=== PATIENT | female | born 1975 | race Caucasian/White ===

== ENCOUNTER → 2016-04-13 | Outpatient (CLI) | payer OTHER ==
[~2016-04-13] MED LIST: OXYC7.5T65 PO
--- NOTE | 2016-04-13 17:50 | DIAGNOSTIC IMAGING REPORT ---
CHEST 2 VIEWS ROUTINE HISTORY: Pre-op. PT TO LAB FIRST, SEND TO [facility] AFTER, NEPHROLITHIASIS COMPARISON: None. FINDINGS: The lungs are clear. Cardiac silhouette is normal in size. No pleural effusions. No pneumothorax. Mild S-shaped scoliosis of the spine. IMPRESSION: No acute process. Electronically signed by: Royal Zazueta M.D. 04/13/2016 5:47 PM
[2016-04-13 17:59] LABS: BASO % 0.5 %; BASO ABS # 0.03 K/uL (0-0.2); COMPLETE YES; EOS % 1.3 %; HEMATOCRIT 37.7 % (37-47); LYMPH % 38.1 %; LYMPH ABS # 2.28 K/uL (1.2-3.4); MEAN CELL VOLUME 86.1 fL (80-100); MEAN CORPUSCULAR HEMOGLOBIN 30.8 pg (25-34); MEAN CORPUSCULAR HGB CONC 35.8 g/dl (32-36); MEAN PLATELET VOLUME 9.8 fL (7.4-10.4); MONO % 8.7 %; NEUT % 51.4 %; PLATELET COUNT 217 K/uL (130-400); RED BLOOD COUNT 4.38 M/uL (4.2-5.4); WHITE BLOOD COUNT 5.98 K/uL (4.8-10.8)
[2016-04-13 18:34] LABS: BLOOD UREA NITROGEN 11 mg/dl (7-18); BUN/CREATININE RATIO 15.2 (10-20); CARBON DIOXIDE 25 mmol/L (21-32); CHLORIDE 105 mmol/L (98-107); CREATININE 0.74 mg/dl (0.60-1.20); POTASSIUM 3.7 mmol/L (3.5-5.1); SODIUM 140 mmol/L (136-145)
== END | disposition home or self-care (01) ==
LOC: C.RAD 16:09
PROVIDERS: ATTEND Urology
DX: N20.0 Calculus of kidney (principal)

== ENCOUNTER → 2016-04-23 | Day surgery (SDC) | payer OTHER ==
[2016-04-20 15:17] VITALS: Ht 160 cm; Wt 56.4 kg
[~2016-04-23] VITALS: Ht 160 cm; Wt 56.4 kg
[~2016-04-23] MED LIST changes: +ATROPINE SULFATE 0.1 MG/ML 5ML SYR IV PRN; +CIPROFLOXACIN 400MG / D5W IV SCH; +DEXAMETHASONE SOD INJ 4 MG/ML VIAL ONE; +EpHEDrine SULFATE INJ 50 MG/ML AMP IV PRN; +FENTANYL CITRATE INJ 50 MCG/1 ML 2 ML VIAL IV PRN; +FENTANYL CITRATE INJ 50 MCG/1 ML 2 ML VIAL ONE; +LACTATED RINGER'S 1000ML 1,000 ML IV SCH; +LIDOCAINE HCL 2% 2 ML VIAL (20MG/ML) ONE; +MIDAZOLAM HCL 1 MG/ML 2ML VIAL ONE; +ONDANSETRON INJ 2 MG/ML 2 ML VIAL IV PRN; +ONDANSETRON INJ 2 MG/ML 2 ML VIAL ONE; +OXYCODONE/ACETAMINOPHEN 5-325 TAB PO PRN; +PROPOFOL IV EMULSION 10 MG/ML 20 ML VIAL IV ONE
--- NOTE | 2016-04-23 08:38 | History & Physical Bridge Note ---
H&P Re-Evaluation Bridge Note: I have examined the patient, reviewed the History & Physical and in the interval since the performance of the History & Physical I have noted the following changes of clinical significance: No changes noted
--- NOTE | 2016-04-23 08:48 | DIAGNOSTIC IMAGING REPORT ---
KUB HISTORY: N20.0 Nephrolithiasis BE DONE EITHER THE NIGHT BEFORE OR [facility] COMPARISON: Outside hospital abdomen and pelvis CT 04/05/2016. FINDINGS: The bowel gas pattern is unremarkable. There are no dilated loops of small bowel to suggest an obstruction. There are few punctate stones within the right kidney. The dominant 7 mm stone seen within the lower pole/renal pelvis of the left kidney. This is similar to the prior study. No ureteral or bladder calculi identified. No pneumoperitoneum or pneumatosis. IMPRESSION: Bilateral nephrolithiasis which is similar to the prior abdomen and pelvis CT on 04/05/2016. The 7 mm stone within the left kidney likely resides within the left renal pelvis. Electronically signed by: Royal Zazueta M.D. 04/23/2016 8:46 AM Dictated Date/Time: 04/23/2016 8:44 AM
--- NOTE | 2016-04-23 09:16 | Discharge Instructions ---
Discharge Instructions Admission Reason for Admission: Stones Discharge Discharge Diagnosis / Problem: L renal stone s/p ESWL Discharge Goals Goal(s): Decrease discomfort, Improve disease control, Therapeutic intervention Activity Recommendations Activity Limitations: per Instructions/Follow-up section Lifting Limitations: gradually increase as tolerated Exercise/Sports Limitations: rest today May Resume Sexual Activity: when tolerated Shower/Bathe: no limitations Driving or Machine Use: resume 1 day after discharge . Instructions / Follow-Up Instructions / Follow-Up Good fluid intake, strain urine as instructed Follow-up as scheduled with [facility] Xray prior to visit Discharge Diet Recommended Diet: Regular Diet (good fluid intake) Procedures Procedures Performed: Left ESWL Pending Studies Studies pending at discharge: no Medical Emergencies . Who to Call and When: Medical Emergencies: If at any time you feel your situation is an emergency, please call 911 immediately. . Non-Emergent Contact Non-Emergency issues call your: Urologist Call Non-Emergent contact if: you have a fever, temperature is above 101, your pain is not controlled, your pain is worsening, your pain is unusual for you, your pain is concerning you, you have any medication questions . . "Provider Documentation" section prepared by Alejandro Segura. VTE Core Measure Inpt VTE Proph given/why not?: SCD's [place] Drug Monitoring Program Search Results: patient reviewed within database, no issues identified
--- NOTE | 2016-04-23 11:35 | [facility] Post Operative Brief Note ---
Immediate Operative Summary Operative Date Apr 23, 2016. Pre-Operative Diagnosis Left renal stone Post-Operative Diagnosis same Procedure(s) Performed Left Extracorporeal Shock Wave Lithotripsy--Renal Surgeon Dr Piedad Segura Esthetician/Skin Therapist Surgeon(s) 0 Estimated Blood Loss 0 Findings Excellent fragmentation of stone on fluoro Specimens 0 Drains NA Anesthesia G[facility]MA Complication(s) None Disposition Recovery Room / PACU
--- NOTE | 2016-04-23 12:07 | OPERATIVE REPORT ---
DATE OF OPERATION: 04/23/2016 PREOPERATIVE DIAGNOSIS: Left renal stone. POSTOPERATIVE DIAGNOSIS: Same. PROCEDURE: Left-sided renal extracorporeal shockwave lithotripsy. SURGEON: Dr. Alejandro Segura. BUOY TENDER: None. ANESTHESIA: General anesthesia with laryngeal mask. COMPLICATIONS: None. FINDINGS: Excellent stone fragmentation on fluoroscopy. DETAILS OF PROCEDURE: The patient was brought to the litho suite. She was correctly identified and the stone was visualized on his most recent x-rays. After the correct time out was performed the patient was positioned over the therapy head. An adequate level of anesthesia was administered. The extracorporeal shockwave lithotripsy treatment was then commenced. Please see the [place] sheet for complete treatment summary. After completion of the procedure the patient was taken to the recovery room in stable condition. I attest to the content of the Intraoperative Record and any orders documented therein. Any exceptio ns are noted below.
[2016-04-23 12:11] VITALS: TEMP 36.6
[2016-04-23 12:40] VITALS: BP 100/66; PULSE 66; O2SAT 100
--- NOTE | 2016-04-23 12:45 | Anesthesia Progress Nt - [facility] ---
Anesthesia Post Op Note Date & Time Apr 23, 2016 at 12:45 Vital Signs Pain Intensity: 0 Vital Signs Past 12 Hours Date Time Temp Pulse Resp B/P Pulse Ox O2 Delivery O2 Flow Rate FiO2 04/23/16 12:40 66 16 100/66 100 Room Air 04/23/16 12:11 36.6 62 16 101/68 100 Room Air 04/23/16 12:04 64 14 99 04/23/16 12:04 65 14 04/23/16 12:03 96/62 04/23/16 12:00 65 12 99 04/23/16 12:00 64 12 04/23/16 11:59 67 14 04/23/16 11:59 64 14 98 04/23/16 11:59 36.8 98 Room Air 04/23/16 11:58 97/61 04/23/16 11:56 68 16 04/23/16 11:56 67 16 99 04/23/16 11:53 99/65 04/23/16 11:51 69 14 100 04/23/16 11:51 66 14 04/23/16 11:50 76 16 100 04/23/16 11:50 80 16 04/23/16 11:48 104/57 04/23/16 11:45 66 14 100 04/23/16 11:45 66 14 04/23/16 11:43 101/63 04/23/16 11:40 67 13 04/23/16 11:40 66 13 100 04/23/16 11:38 92/61 04/23/16 11:35 65 16 100 04/23/16 11:35 36.7 70 12 100/65 100 Mask 6 04/23/16 11:35 65 16 04/23/16 08:42 36.6 80 16 105/64 100 Room Air Notes Mental Status: alert / awake / arousable, participated in evaluation Pt Amnestic to Procedure: Yes Nausea / Vomiting: adequately controlled Pain: adequately controlled Airway Patency, RR, SpO2: stable & adequate BP & HR: stable & adequate Hydration State: stable & adequate Anesthetic Complications: no major complications apparent
== END | disposition home or self-care (01) ==
LOC: X.SURG 08:23
PROVIDERS: ATTEND Urology
DX: N20.0 Calculus of kidney (principal); Z84.1 Family history of disorders of kidney and ureter; Z88.0 Allergy status to penicillin; Z88.8 Allergy status to other drugs, medicaments and biological substances

== ENCOUNTER → 2016-05-05 | Outpatient (CLI) | payer OTHER ==
[~2016-05-05] MED LIST changes: -ATROPINE SULFATE 0.1 MG/ML 5ML SYR IV PRN; -CIPROFLOXACIN 400MG / D5W IV SCH; -DEXAMETHASONE SOD INJ 4 MG/ML VIAL ONE; -EpHEDrine SULFATE INJ 50 MG/ML AMP IV PRN; -FENTANYL CITRATE INJ 50 MCG/1 ML 2 ML VIAL IV PRN; -FENTANYL CITRATE INJ 50 MCG/1 ML 2 ML VIAL ONE; -LACTATED RINGER'S 1000ML 1,000 ML IV SCH; -LIDOCAINE HCL 2% 2 ML VIAL (20MG/ML) ONE; -MIDAZOLAM HCL 1 MG/ML 2ML VIAL ONE; -ONDANSETRON INJ 2 MG/ML 2 ML VIAL IV PRN; -ONDANSETRON INJ 2 MG/ML 2 ML VIAL ONE; -OXYCODONE/ACETAMINOPHEN 5-325 TAB PO PRN; -PROPOFOL IV EMULSION 10 MG/ML 20 ML VIAL IV ONE
== END | disposition home or self-care (01) ==
LOC: C.LABSPEC 17:36
PROVIDERS: ATTEND Urology
DX: N20.0 Calculus of kidney (principal)

== ENCOUNTER → 2016-05-05 | Outpatient (CLI) | payer OTHER ==
--- NOTE | 2016-05-05 09:09 | DIAGNOSTIC IMAGING REPORT ---
KUB HISTORY: N20.0 Nephrolithiasis COMPARISON: [facility] 04/23/2016. FINDINGS: The bowel gas pattern is unremarkable. There are no dilated loops of small bowel to suggest an obstruction. The dominant stone within the left kidney is no longer visualized. No ureteral or bladder calculi.] Shadow is partially sclerotic line bowel gas. There are few punctate calcifications within the right kidney, unchanged. No pneumoperitoneum or pneumatosis. IMPRESSION: 1. Stable right-sided nephrolithiasis. 2. No left renal calculi. 3. No ureteral calculi. Electronically signed by: Royal Zazueta M.D. 05/05/2016 9:07 AM Dictated Date/Time: 05/05/2016 9:06 AM
== END | disposition home or self-care (01) ==
LOC: C.RAD 08:42
PROVIDERS: ATTEND Urology
DX: N20.0 Calculus of kidney (principal)

== ENCOUNTER → 2016-11-02 | Outpatient (CLI) | payer OTHER ==
--- NOTE | 2016-11-02 10:01 | DIAGNOSTIC IMAGING REPORT ---
KUB HISTORY: 41 years-old Female N20.0 [id number] COMPARISON: [facility] 05/05/2016, CT 04/05/2016 TECHNIQUE: Single abdominal radiograph FINDINGS: Renal shadows are partially secured by overlying colonic stool. Several right-sided renal calculi are again seen. No calculi are seen along the course of either ureter. The bowel gas pattern is nonobstructive. There is mild convex right curvature of the lumbar spine. No fracture is identified. No radiopaque foreign body. Lung bases appear clear. IMPRESSION: 1. Unchanged right-sided nephrolithiasis. 2. No calculi seen along the course of either ureter. The above report was generated using voice recognition software. It may contain grammatical, syntax or spelling errors. Electronically signed by: Amandeep Hills M.D. 11/02/2016 10:00 AM Dictated Date/Time: 11/02/2016 9:57 AM
== END | disposition home or self-care (01) ==
LOC: C.RAD 09:35
PROVIDERS: ATTEND Urology
DX: N20.0 Calculus of kidney (principal)